=== PATIENT | female | born 1990 | race Hispanic/Latino ===

== ENCOUNTER 2022-11-13 23:46 | Observation (INO) | payer OTHER ==
[2022-11-14] MEDS ORDERED: Ketorolac Tromethamine 30 MG/ML VIAL ONE ×2 (00:46→10:09)
[2022-11-14] MEDS ORDERED: Ondansetron PF 4 MG/2 ML Vial ONE ×2 (00:46→10:09)
[2022-11-14 01:18] LABS: #Eosinphils 0.1 thou/uL (0.0-0.7); #Neutrophils 8.6 thou/uL (1.40-6.50); %Basophils 0.3 % (0.0-1.0); %Eosinophils 1.1 % (0.0-10.0); %Lymphocytes 19.2 % (21.0-51.0); %Monocytes 8.2 % (0.0-10.0); %Neutrophils 70.9 % (42.0-75.0); Hematocrit 33.9 % (36.0-47.0); Hemoglobin 11.3 g/dL (12.0-16.0); Mean Corpuscular HGB CONC 33.3 g/dL (32.0-36.0); Mean Corpuscular Volume 93.1 fl (78.0-98.0); Mean Platelet Volume 9.7 fL (7.4-10.4); Platelet Count 270 10x3/uL (130-400); RBC Distribution Width 12.6 % (11.5-14.5); Red Blood Cell (RBC) Count 3.64 mill/uL (4.20-5.40); White Blood Cell (WBC) Count 12.2 10x3/uL (4.8-10.8)
[2022-11-14 01:42] LABS: ALT (SGPT) 11 U/L (8-55); AST (SGOT) 14 U/L (5-34); Albumin 3.9 g/dL (3.5-5.0); Alkaline Phosphatase 117 U/L (40-110); Anion Gap 13 mmol/L (10-20); BUN (Urea Nitrogen) 6 mg/dL (7.0-18.7); Bilirubin, Total 0.5 mg/dL (0.2-1.2); Calc. Creatinine Clearance 0 mL/min (70-130); Calcium 9.1 mg/dL (7.8-10.44); Carbon Dioxide 26 mmol/L (22-29); Chloride 100 mmol/L (98-107); Estimated GFR 96; Globulin 4.2 g/dL (2.4-3.5); Glucose 102 mg/dL (70-105); Potassium 3.5 mmol/L (3.5-5.1); Protein, Total 8.1 g/dL (6.0-8.3); Sodium 135 mmol/L (136-145)
[2022-11-14 02:10] LABS: Bacteria/HPF 4+ HPF (None Seen); Bilirubin Negative (Negative); Blood, Urine Trace (Negative); CAUTI Indications for Culture Pelvic or flank pain; Clarity Extra Turbid (Clear); Glucose, Urine (Dipstick) Normal (Negative); Ketone, Urine Negative (Negative); Leukocyte 500 Leu/uL (Negative); Nitrite Negative (Negative); Protein, Urine (Dipstick) 50 mg/dL (Neg-Trace); RBC/HPF None Seen HPF (0-3); Specific Gravity, Urine 1.018 (1.002-1.036); Squamous Epithelial 21-50 HPF (0-3); WBC/HPF Greater than 50 HPF (0-3)
[2022-11-14 02:17] LABS: Urine Culture Reflex Yes Yes
[2022-11-14] MEDS ORDERED: Morphine 2 MG/ML VIAL ONE (02:55)
[2022-11-14] MEDS ORDERED: Cephalexin 250 MG CAP ONE (02:56)
[2022-11-14] MEDS ORDERED: Piperacillin/Tazobactam 3.375 GM VIAL ONE ×2 (04:46→12:49)
[2022-11-14] MEDS ORDERED: Morphine 4 MG/ML VIAL SLOW IVP PRN ×2 (04:55→10:00)
[2022-11-14 06:00] VITALS: BMI 40.6
[2022-11-14] MEDS ORDERED: Ketorolac Tromethamine 30 MG/ML VIAL IVP PRN (07:00)
[2022-11-14] MEDS ORDERED: Ipratropium/Albuterol 3 ML NEB NEB PRN (07:11)
[2022-11-14] MEDS ORDERED: Glucagon 1 MG/ML KIT IM PRN (07:11)
[2022-11-14] MEDS ORDERED: Dextrose 50% Abboject 50 ML SYRINGE SLOW IVP PRN (07:11)
[2022-11-14] MEDS ORDERED: Ondansetron PF 4 MG/2 ML Vial IVP PRN (07:11)
[2022-11-14] MEDS ORDERED: traMADol HCl 50 MG TAB PO PRN (07:11)
[2022-11-14] MEDS ORDERED: Dextrose 5% in Water 1,000 ML IV PRN (07:11)
[2022-11-14] MEDS ORDERED: hydrALAZINE 20 MG/ML VIAL SLOW IVP PRN (07:11)
[2022-11-14] MEDS ORDERED: Ondansetron ODT 4 MG TAB PO PRN (07:11)
[2022-11-14] MEDS ORDERED: Sodium Chloride 0.9% 1,000 ML IV SCH (07:15)
[2022-11-14 09:23] LABS: Lactic Acid 0.5 mmol/L (0.5-2.2)
[2022-11-14] MEDS ORDERED: Bupivacaine 0.25% HCL 30 ML VIAL ONE (09:27)
[2022-11-14] MEDS ORDERED: EPINEPHrine 1 MG/10 ML Abboject SYRINGE ONE (09:27)
[2022-11-14] MEDS: Piperacillin/Tazobactam 3.375 GM in Sodium Chloride 0.9% 100 ML IVPB SCH ×2 (09:48→16:52)
[2022-11-14] MEDS: Famotidine/PF 20 mg/2ml Vial SLOW IVP SCH ×2 (09:48→20:27)
[2022-11-14] MEDS ORDERED: Iopamidol 0 ML FS ONE (09:50)
[2022-11-14] MEDS ORDERED: Iopamidol 15 ML ONE ×2 (09:50→12:18)
[2022-11-14] MEDS ORDERED: fentaNYL PF 100 MCG/2 ML SYRINGE ONE (09:57)
[2022-11-14] MEDS ORDERED: Morphine 2 MG/ML VIAL SLOW IVP PRN (10:00)
[2022-11-14] MEDS ORDERED: Glycopyrrolate 0.2 MG/ML 5 ML SYRINGE ONE (10:09)
[2022-11-14] MEDS ORDERED: NEOSTIGMINE 3 MG/3 ML SYR 3 MG/3 ML SYRINGE ONE (10:09)
[2022-11-14] MEDS ORDERED: Dexamethasone 20 MG/5 ML VIAL ONE (10:09)
[2022-11-14] MEDS ORDERED: PROPOFOL 200 MG/20 ML VIAL ONE (10:09)
[2022-11-14] MEDS ORDERED: Lidocaine 1% PF 5 ML VIAL ONE (10:09)
[2022-11-14] MEDS ORDERED: Rocuronium Bromide 10 MG/ML (10ML VIAL) ONE (10:09)
[2022-11-14] MEDS ORDERED: PHENYLEPHRINE-NS 100 MCG/ML 10 ML SYRINGE ONE (10:09)
[2022-11-14] MEDS ORDERED: Magnesium 5 GM/10 ML VIAL ONE (12:52)
[2022-11-14] MEDS ORDERED: Ondansetron HCl/PF 4 MG/2 ML Vial IVP PRN (13:38)
[2022-11-14] MEDS ORDERED: Promethazine HCl 25 MG/ML VIAL IM PRN (13:38)
[2022-11-14] MEDS: Lactated Ringer's 1,000 ML IV SCH ×3 (14:35→23:35)
[2022-11-14] MEDS: traMADol HCl 50 MG TAB PO PRN (17:01)
[2022-11-15] MEDS: Piperacillin/Tazobactam 3.375 GM in Sodium Chloride 0.9% 100 ML IVPB SCH ×2 (00:12→08:30)
[2022-11-15] MEDS: traMADol HCl 50 MG TAB PO PRN (01:43)
[2022-11-15 05:50] LABS: #Monocytes 0.6 thou/uL (0.11-0.59); #Neutrophils 6.5 thou/uL (1.40-6.50); %Basophils 0.1 % (0.0-1.0); %Lymphocytes 12.2 % (21.0-51.0); %Monocytes 7.3 % (0.0-10.0); %Neutrophils 79.9 % (42.0-75.0); Hematocrit 26.9 % (36.0-47.0); Hemoglobin 8.6 g/dL (12.0-16.0); Mean Corpuscular Hemoglobin 31.3 pg (27.0-31.0); Mean Corpuscular Volume 97.8 fl (78.0-98.0); Mean Platelet Volume 9.5 fL (7.4-10.4); Platelet Count 251 10x3/uL (130-400); RBC Distribution Width 12.8 % (11.5-14.5); Red Blood Cell (RBC) Count 2.75 mill/uL (4.20-5.40); White Blood Cell (WBC) Count 8.1 10x3/uL (4.8-10.8)
[2022-11-15] MEDS: Lactated Ringer's 1,000 ML IV SCH ×2 (06:15→12:23)
[2022-11-15 07:49] LABS: ALT (SGPT) 24 U/L (8-55); AST (SGOT) 36 U/L (5-34); Albumin 3.1 g/dL (3.5-5.0); Alkaline Phosphatase 98 U/L (40-110); Bilirubin, Direct 0.2 mg/dL (0.1-0.3); Bilirubin, Total 0.2 mg/dL (0.2-1.2); Protein, Total 6.1 g/dL (6.0-8.3)
[2022-11-15] MEDS ORDERED: Potassium Chloride 20 MEQ TAB PO SCH (08:15)
[2022-11-15] MEDS: Famotidine/PF 20 mg/2ml Vial SLOW IVP SCH (08:31)
[2022-11-15] MEDS ORDERED: Ibuprofen 600 MG TAB PO SCH (11:00)
[2022-11-15] MEDS ORDERED: Acetaminophen 500 MG TAB PO SCH (12:00)
[2022-11-15] MEDS ORDERED: Gabapentin 100 MG CAP PO SCH (14:00)
[2022-11-15 15:54] VITALS: BP 119/78; TEMP 98.5
[2022-11-15] MEDS ORDERED: Famotidine 20 MG TAB PO SCH (21:00)
== END 2022-11-15 16:40 ==
LOC: ERS 23:46 → EEVIPCON 11-14 04:50 → SJJU 11-14 04:50
PROVIDERS: ADMIT Surgery; ATTEND Surgery
PROC: 0FT44ZZ Resection of Gallbladder, Percutaneous Endoscopic Approach (ICD-10-PCS; principal; 2022-11-15)
DX: K80.12 Calculus of gallbladder with acute and chronic cholecystitis without obstruction (principal); Z87.59 Personal history of other complications of pregnancy, childbirth and the puerperium; K66.9 Disorder of peritoneum, unspecified
CPT/HCPCS: 36415; 76705; 80053; 80076; 81001; 83605; 83690; 84145; 85025; 87086; 88304; 96365; 96366; 96374; 96375; 96376; C1889; G0378; J0171; J1100; J1885; J2270; J2272; J2405; J2543; J2704; J3475; J3490; J7050; J7120; Q9966; Q9967; S0020; S0028